=== PATIENT | male | born 1970 | race Caucasian/White ===

== ENCOUNTER 2016-10-08 18:24 | Emergency (ER) | payer MEDICAID, OTHER ==
[~2016-10-08] VITALS: Ht 162.6 cm; Wt 75.5 kg
[~2016-10-08 18:24] MED LIST: ENAL10TA88
[2016-10-08 18:56] VITALS: Ht 162.6 cm; Wt 75.5 kg
[2016-10-08] MEDS ORDERED: IBUP-1542 PO (19:45)
[2016-10-08] MEDS ORDERED: ACET500C5 PO (19:46)
--- NOTE | 2016-10-08 19:53 | ERD ---
ER Documentation Chief Complaint Date/Time DATE: 10/08/16 TIME: 19:49 Chief Complaint c/o feeling hot x 2 hours, denies other symptoms. HPI This is a 46-year-old male who presents to the emergency department today complaining of body aches for the past couple of hours. 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 States this happened yesterday for an hour and then resolved. States he is worried because this has been now for 3 hours. Denies any nausea vomiting diarrhea, fevers. ROS All systems reviewed and are negative except as per history of present illness. Medications Home Meds Active Scripts Acetaminophen* (Tylophen*) 500 Mg Capsule, 1 CAP PO Q6H Y for PAIN AND OR ELEVATED TEMP, #30 CAP Prov:PARAM CALLE PA-C 10/08/16 Ibuprofen* (Motrin*) 600 Mg Tab, 600 MG PO Q8, #30 TAB Prov:PARAM CALLE PA-C 10/08/16 Reported Medications Enalapril (Enalapril) 10 Mg Tablet 02/17/11 Allergies Allergies: Coded Allergies: No Known Allergy (Unverified , 10/08/16) PMhx/Soc History of Surgery: No Anesthesia Reaction: No Hx Neurological Disorder: No Hx Respiratory Disorders: No Hx Psychiatric Problems: Yes (DEPRESSION AND ANXIETY) Hx Miscellaneous Medical Probl: No Hx Alcohol Use: Yes (ACCATIONAL SOCIAL DRINKING) Hx Substance Use: No Hx Tobacco Use: No Physical Exam Vitals Vital Signs Date Time Temp Pulse Resp B/P Pulse Ox O2 Delivery O2 Flow Rate FiO2 10/08/16 18:56 98.8 96 22 166/91 98 Physical Exam Const: No acute distress Head: Atraumatic Eyes: Normal Conjunctiva ENT: Ears TMs normal. Nose no drainage. Throat no erythema no exudate Neck: Full range of motion..~ No meningismus. Resp: Clear to auscultation bilaterally. No breath sounds. No wheezing Cardio: Regular rate and rhythm, no murmurs Abd: Soft, non tender, non distended. Normal bowel sounds Skin: No petechiae or rashes Back: No midline or flank tenderness Ext: No cyanosis, or edema Neur: Awake and alert Psych: Normal Mood and Affect Procedures/MDM This is a 46-year-old male who presents to the emergency department today complaining of body aches and feeling hot for the past couple of hours. Patient has a history of diabetes for which it is controlled with diet and exercise. He takes enalapril for his hypertension. Patient denied any symptoms of headache, nausea vomiting diarrhea, abdominal pain, blurred vision or headache. Patient is afebrile and otherwise well-appearing at this time. Patient's symptoms at this time consistent with body chills and body aches. I've explained to the patient that he may be trying to fight off an infection at this time. I do not feel that the patient requires laboratory work or imaging at this time.Patient is not tachycardic. Patient's oxygen saturation is 98%. Patient's blood pressure is mildly elevated however I have low suspicion for hypertensive urgency or hypertensive emergency. He was instructed to continue taking his enalapril as prescribed. At this time the patient is stable for discharge and outpatient management. Patient should follow up with their PCP in the next 1-2 days. They may return to the emergency department sooner for any persistent or worsening of symptoms. Patient understood and agreed with the plan. Departure Diagnosis: Primary Impression: Chills Condition: Fair Patient Instructions: Fever Control (Adult) [facility] Usted se wallace hecho un examen mdico de control que le indica que no est en alonzo condicin que requiera tratamiento urgente en el Departamento de Emergencia. Un estudio ms profundo y el tratamiento de yates condicin pueden esperar sin ningn riesgo hasta que usted sea atendida/o en el consultorio de yates mdico o alonzo cl bernard. Es responsabilidad suya arreglar alonzo cristina para el seguimiento del aj. MANEJO DE CONDICIONES NO URGENTES EN EL FUTURO 1) Si usted tiene un mdico de atencin primaria: Usted debera llamar a yates mdico de atencin primaria antes de venir al departamento de emergencia. Despus de las horas de consultorio, yates doctor o yates asociado/a est disponible por telfono. El mdico o enfermero de zunilda en el servicio telefnico puede asesorarle por kyleigh medio para atender el problema, o aj contrario se puede programar alonzo cristina. 2) Si usted no tiene un mdico de atencin primaria: Llame al mdico o clnica de referencia que aparece abajo nelson las horas de consultorio para hacer alonzo cristina para que le vean. CLINICAS: [facility] [phone] [id number] [facility] [facility] [phone] [facility] [phone] [place] [phone] [place] [phone] [facility]. [phone] [address] Additional Instructions: Llame al doctor MAANA y joe alonzo CRISTINA PARA DENTRO DE 1-2 [place].Dgale a la secretaria que nosotros le instruimos hacer esta cristina.Avise o llame si yates condicin se empeora antes de la cristina. Regresa aqui si peor o no mejor. Tylenol or Motrin for body aches PARAM CALLE PA-C Oct 08, 2016 19:53
== END 2016-10-08 20:16 | disposition home or self-care (01) ==
LOC: FTE 18:24 → E/R 20:16
DX: R68.83 Chills (without fever) (principal); I10 Essential (primary) hypertension; E11.9 Type 2 diabetes mellitus without complications
CPT/HCPCS: 99283